=== PATIENT | male | born 1970 | race Caucasian/White ===

== ENCOUNTER 2022-08-12 01:27 | Day surgery (SDC) | payer BC, SELFPAY ==
[2022-07-28 13:32] VITALS: BMI 32.5
[2022-08-12 09:52] VITALS: BP 141/79; PULSE 60; RESP 20; TEMP 36.4; O2SAT 99; BMI 32.9
[2022-08-12] MEDS: LACTATED RINGERS 1,000 ML 150 ML IV CONT (09:57)
--- NOTE | 2022-08-12 10:01 | PM.HPGS ---
History of Present Illness History of Present Illness Consent: Risks, benefits, and alternatives have been discussed and questions answered. Patient agrees to proceed with procedure. Chief complaint: neoplasm screening Narrative: Nahum Kong is a 52 year old male Presents for screening colonoscopy. Patient's current weight appetite and bowel movements are normal. Patient denies abdominal pain. He has had no bleeding. Family history is noncontributory. Review of Systems Review of Systems: Review of systems noncontributory. [facility] Family History Family History Mother Family history of cardiovascular disease Family history of lung cancer Family history of throat cancer Sibling Family history of cardiovascular disease Social History Social History (Updated 08/04/21 @ 15:00 by Destiny Harper) Smoking status: Current every day smoker Tobacco type: e-cigarettes/vaping Second hand tobacco smoke exposure: No Smoking end date: 06/19/14 Alcohol intake: never Substance use: current Substance use type: marijuana Last use: Daily Living arrangements: with family Occupation/Education: occupation Gender identity (if verbalized by the patient): Male Sexual Orientation (if Verbalized by the Patient): Straight or Heterosexual Spiritual care concerns: No Meds Home Medications and Allergies Allergies Allergy/AdvReac Type Severity Reaction Status Date / Time No Known Allergies Allergy Mild Verified 08/12/22 09:49 Vital Signs Vital Signs - 24 hr 08/12/22 09:52 Temperature 97.6 F Pulse Rate 60 Respiratory Rate 20 Blood Pressure 141/79 H Pulse Oximetry 99 Oxygen Delivery Room Air Exam Narrative: Physical exam reveals patient to be alert. Vital signs stable. HEENT exam is unremarkable. Patient is anicteric. Lungs are clear to auscultation and percussion. Heart is without murmur or extra sounds. Abdomen bowel sounds are present soft nontender with no organomegaly. Digital external rectal exam is normal. Assessment and Plan Assessment and plan (1) Encounter for screening colonoscopy: Code(s): Z12.11 - Encounter for screening for malignant neoplasm of colon Status: Acute Assessment and Plan: Patient presents for screening colonoscopy. He appears to be at average risk for colon polyps. Further recommendations may be given after endoscopy.
--- NOTE | 2022-08-12 10:19 | WPDANESEPPF ---
Anes - Initial Pre Proc Eval Procedure: Operation Date: 08/12/22 10:30 Proposed Procedures p Screening Colonoscopy - Sahil Monzon MD Date/Time: 08/12/22 10:19 Surgeon: Sahil Monzon MD Pre Op Diagnosis: neoplasm screening Patient Data Age: 52 Gender: M Height: 1.75 m Weight: 101.2 kg Last Vital Signs Temp 97.6 F 08/12/22 09:52 Pulse 60 08/12/22 09:52 Resp 20 08/12/22 09:52 BP 141/79 H 08/12/22 09:52 Pulse Ox 99 08/12/22 09:52 O2 Del Method Room Air 08/12/22 09:52 Allergies Allergy/AdvReac Type Severity Reaction Status Date / Time No Known Allergies Allergy Mild Verified 08/12/22 09:49 Patient hx anesthesia problems: none Family hx anesthesia problems: none Results Review: All pre-operative results and documents have been reviewed as part of the pre-operative evaluation. [facility] Family History Family History Mother Family history of cardiovascular disease Family history of lung cancer Family history of throat cancer Sibling Family history of cardiovascular disease Social History Social History (Updated 08/04/21 @ 15:00 by Destiny Harper) Smoking status: Current every day smoker Tobacco type: e-cigarettes/vaping Second hand tobacco smoke exposure: No Smoking end date: 06/19/14 Alcohol intake: never Substance use: current Substance use type: marijuana Last use: Daily Living arrangements: with family Occupation/Education: occupation Gender identity (if verbalized by the patient): Male Sexual Orientation (if Verbalized by the Patient): Straight or Heterosexual Spiritual care concerns: No Anes - Eval Final PreProcedure Day of Procedure 08/12/22 10:19 Patient weight: obese Heart: regular rate and rhythm Lungs: clear to auscultation Airway: Mallampati scale class II Neurological: alert and oriented Last oral intake: >/= 8 hours ASA classification: II Emergent: no Anesthetic plan: proceed Anesthesia type and monitoring: general GIVS and standard monitoring Results Review: All pre-operative results and documents have been reviewed as part of the pre-operative evaluation. Informed Consent: The patient's anesthetic plan and its attendant risks and benefits were discussed with the patient/family/POA. Questions were solicited and answers provided to the satisfaction of the patient/family/POA.
[2022-08-12 10:50] VITALS: BP 152/89; PULSE 63; RESP 18; O2SAT 96
[2022-08-12 11:00] VITALS: BP 141/85; PULSE 64; RESP 27; O2SAT 100
[2022-08-12 11:10] VITALS: BP 131/99; PULSE 60; RESP 18; O2SAT 97
== END 2022-08-12 11:20 | disposition home or self-care (01) ==
PROVIDERS: PCP Family Medicine; Visit Provider Internal Medicine Gastroenterology
PROC: 0DJD8ZZ Inspection of Lower Intestinal Tract, Via Natural or Artificial Opening Endoscopic (ICD-10-PCS; CPT 45378; principal; 2022-08-12 10:30)
DX: Z12.11 Encounter for screening for malignant neoplasm of colon (principal); D12.5 Benign neoplasm of sigmoid colon; K63.5 Polyp of colon; K62.1 Rectal polyp; K64.8 Other hemorrhoids; F17.290 Nicotine dependence, other tobacco product, uncomplicated; F12.90 Cannabis use, unspecified, uncomplicated; E66.9 Obesity, unspecified; Z68.32 Body mass index [BMI] 32.0-32.9, adult
CPT/HCPCS: 45385; 88305; J2704; J7120

== ENCOUNTER 2024-09-02 08:54 | Outpatient (CLI) | payer BC, SELFPAY | END 2024-09-02 08:55 | disposition home or self-care (01) | LOC: MICIMG 08:55 | PROVIDERS: PCP Family Medicine; Visit Provider Physician Assistant Medical | DX: M25.561 Pain in right knee (principal) | CPT/HCPCS: 73562 ==

== ENCOUNTER 2025-02-04 08:16 | Outpatient (CLI) | payer BC, SELFPAY ==
--- NOTE | ~2025-02-04 | MR_ITS ---
MRI of the right knee Clinical history: Medial meniscal tear Technique: Coronal proton density and proton density-weighted images, sagittal proton-density and T2 fat-sat images, and axial proton-density fat-saturated images were acquired. Findings: Anterior and posterior cruciate ligaments are intact. Medial collateral ligament and the lateral collateral ligament complex is intact. Popliteus tendon is intact. There is oblique tear of the posterior horn and body of the medial meniscus. No lateral meniscal tear seen. 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 Remaining articular cartilage is well preserved. There is minimal reactive marrow edema in the medial tibial plateau region at the joint line. Extensor mechanism is intact. Small to moderate joint effusion present. There is mild prepatellar soft tissue edema or bursitis. No Canela's cyst. Impression: Oblique tear of the posterior horn and body of the medial meniscus. 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 Small to moderate joint effusion. Mild prepatellar soft tissue edema or bursitis. Reviewed, dictated and finalized at [facility]. Impression: Oblique tear of the posterior horn and body of the medial meniscus. 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 Small to moderate joint effusion. Mild prepatellar soft tissue edema or bursitis.
== END 2025-02-04 08:17 | disposition home or self-care (01) ==
LOC: MICIMG 08:17
PROVIDERS: PCP Family Medicine; Visit Provider Orthopaedic Surgery
DX: S83.241A Other tear of medial meniscus, current injury, right knee, initial encounter (principal); X58.XXXA Exposure to other specified factors, initial encounter; M94.261 Chondromalacia, right knee; M25.461 Effusion, right knee
CPT/HCPCS: 73721